=== PATIENT | female | born 1940 | race Caucasian/White ===

== ENCOUNTER 2022-07-04 10:40 | Emergency (ER) | payer MEDICARE ==
[~2022-07-04] VITALS: Ht 162.6 cm; Wt 77.1 kg
[2022-07-04] MEDS ORDERED: OMEP40CA21 PO (11:10)
[2022-07-04] MEDS ORDERED: GABA-536 PO (11:10)
[2022-07-04] MEDS ORDERED: CHOL10005 PO (11:10)
[2022-07-04] MEDS ORDERED: ROSU40TA PO (11:10)
[2022-07-04] MEDS ORDERED: BUPR-53 PO (11:10)
[2022-07-04] MEDS ORDERED: ASPI81TA31 PO (11:10)
[2022-07-04] MEDS ORDERED: SENN8.6T19 PO (11:10)
[2022-07-04] MEDS ORDERED: LOSA25TA27 PO (11:10)
[2022-07-04] MEDS ORDERED: METF-442 PO (11:10)
[2022-07-04] MEDS ORDERED: VENL150C58 PO (11:10)
[2022-07-04] MEDS ORDERED: FOLI1TAB94 PO (11:10)
[2022-07-04] MEDS ORDERED: CYAN250010 PO (11:10)
[2022-07-04] MEDS ORDERED: ACET-73 PO (11:10)
[2022-07-04] MEDS ORDERED: DONE10TA44 PO (11:10)
[2022-07-04] MEDS ORDERED: MIRT-73 PO (11:10)
[2022-07-04] MEDS ORDERED: ACETAMINOPHEN ES 500 MG TABLET ONE (11:14)
--- NOTE | 2022-07-04 11:15 | NUR ---
Pt seen by MD for bedside Eval. Safety measures in place. Will continue to monitor.
--- NOTE | 2022-07-04 11:17 | NUR ---
Administered steri-strips on Pt. Pt sent to Radiology for CT scan. Safety measures in place. Will continue to monitor.
[2022-07-04] MEDS: ACETAMINOPHEN ES 500 MG TABLET PO ONE (11:35)
--- NOTE | 2022-07-04 12:11 | NUR ---
Contacted [facility] for ambulance transfer back to [facility]. Was told by Mary that an ambulance will arrive in 40-60 minutes. Safety measures in place. Will continue to monitor.
--- NOTE | 2022-07-04 12:41 | NUR ---
Contacted Deidra from [facility] about Pt being discharged and being sent back to [facility] ([facility]). Safety measures in place. Will continue to monitor.
--- NOTE | 2022-07-04 13:47 | NUR ---
Patient discharged to home in stable condition. Written and verbal after care instructions given. Patient verbalizes understanding of instructions. Patient picked up by [facility]. All belongings and discharge paperwork went with patient. Stressed follow up or return to ER for worsening s/s.
[2022-07-04 13:50] VITALS: BP 113/72
== END 2022-07-04 13:51 ==
LOC: ER 10:40
DX: S01.81XA Laceration without foreign body of other part of head, initial encounter (principal); S16.1XXA Strain of muscle, fascia and tendon at neck level, initial encounter; S20.211A Contusion of right front wall of thorax, initial encounter; F03.90 Unspecified dementia, unspecified severity, without behavioral disturbance, psychotic disturbance, mood disturbance, and anxiety; I10 Essential (primary) hypertension; E11.9 Type 2 diabetes mellitus without complications; Z88.2 Allergy status to sulfonamides; Z88.1 Allergy status to other antibiotic agents; Z79.82 Long term (current) use of aspirin; Z79.899 Other long term (current) drug therapy; W18.39XA Other fall on same level, initial encounter; Y93.89 Activity, other specified; Y92.89 Other specified places as the place of occurrence of the external cause; Y99.8 Other external cause status
CPT/HCPCS: 70450; 71250; 72125; A4663; A9150